=== PATIENT | male | born 1990 | race Two or more races ===

== ENCOUNTER 2017-11-02 18:39 | Emergency (ER) | payer MEDICAID, SELFPAY | END 2017-11-02 20:25 | LOC: ED 20:19 | DX: Z00.00 Encounter for general adult medical examination without abnormal findings (principal) | CPT/HCPCS: 99281 ==

== ENCOUNTER 2018-01-08 15:57 | Emergency (ER) | payer MEDICAID ==
[~2018-01-08] VITALS: Ht 177.8 cm; Wt 70.9 kg
[2018-01-08 16:02] VITALS: BP 105/61
[2018-01-08 16:42] LABS: CULTURE INDICATED? YES; MICROSCOPIC INDICATED
[2018-01-08] MEDS ORDERED: LIDOCAINE-MPF 1%, 2ML ONE (17:38)
[2018-01-08] MEDS ORDERED: AZITHROMYCIN 500 MG TABLET ONE (17:38)
[2018-01-08] MEDS ORDERED: CEFTRIAXONE 250 MG ONE (17:39)
[2018-01-08] MEDS ORDERED: CEFTRIAXONE 250 MG IM ONE (18:00)
[2018-01-08] MEDS ORDERED: AZITHROMYCIN 250 MG TABLET PO ONE (18:30)
== END 2018-01-08 18:44 | disposition home or self-care (01) ==
LOC: ED 18:38
DX: R07.89 Other chest pain (principal); A56.01 Chlamydial cystitis and urethritis; J45.909 Unspecified asthma, uncomplicated; W51.XXXA Accidental striking against or bumped into by another person, initial encounter; Y93.61 Activity, american tackle football; Y99.8 Other external cause status; Y92.321 Football field as the place of occurrence of the external cause
CPT/HCPCS: 81001; 87086; 96372; 99283; J0696; 99284